=== PATIENT | male | born 1945 | race Caucasian/White ===

== ENCOUNTER 2019-07-31 07:52 | Observation (INO) | payer OTHER ==
[~2019-07-31] VITALS: Ht 172.7 cm; Wt 104.8 kg
[2019-07-31] VITALS (11 sets, daily range): BP systolic 120–153; BP diastolic 50–83
[~2019-07-31 07:52] MED LIST: ALTACE5 M1 PO; AMBIEN 10 MG TA10 MG PO; ASA5UEC PO; COLACE100 MG PO; CRESTOR40 MG PO; DIPHENOXYLATE/A1 TA1 PO; FENOFIBRATE160 MG PO; FLAGYL500 MG PO; FLOMAX PO; GLUCOPHAGE XR750 MG PO; MOBIC7.5 MG PO; PRILOSEC 20 MG20 MG PO; PYRIDIUM200 MG PO; VENLAFAXINE HCL75 M2 PO; ZANAFLEX2 M1 PO
[2019-07-31 08:52] LABS: HEMATOCRIT 34.3 % (42.0-52.0); HEMOGLOBIN 11.6 gm/dL (14.0-18.0); MCH 31.7 pg (26.0-34.0); MCHC 33.7 g/dL (28.0-37.0); MCV 93.8 fL (80.0-100.0); RBC 3.65 mil/uL (4.50-6.00); RDW 20.8 % (10.5-14.5); WBC 6.4 thou/uL (4.0-11.0)
[2019-07-31 09:05] LABS: CALCIUM 9.5 mg/dL (8.5-10.1); CREATININE 1.4 mg/dL (0.7-1.3); POTASSIUM 4.3 mmol/L (3.5-5.1)
[2019-07-31] MEDS ORDERED: FOSAMAX 70 MG T70 MG PO (09:06)
[2019-07-31] MEDS ORDERED: FOLIC ACID0.4 MG PO (09:07)
[2019-07-31] MEDS ORDERED: NORVASC5 M1 PO (09:07)
[2019-07-31] MEDS ORDERED: NEURONTIN 400M400 M2 PO (09:08)
[2019-07-31] MEDS ORDERED: LANTUS SUBQ (09:09)
[2019-07-31] MEDS ORDERED: AVAPRO300 MG PO (09:11)
[2019-07-31] MEDS ORDERED: METHOTREXATE 22.5 M1 PO (09:12)
[2019-07-31] MEDS ORDERED: NITROSTAT0.4 M1 SUBLING (09:13)
[2019-07-31] MEDS ORDERED: PROTONIX40 M4 PO (09:14)
[2019-07-31] MEDS ORDERED: TORSEMIDE10 MG PO (09:15)
[2019-07-31] MEDS ORDERED: RAYOS5 MG PO (09:15)
[2019-07-31] MEDS ORDERED: ROSUVASTATIN CA20 MG PO (09:15)
[2019-07-31] MEDS ORDERED: ZETIA10 MG PO (09:16)
[2019-07-31] MEDS ORDERED: TRAZODONE HCL50 MG PO (09:16)
[2019-07-31] MEDS ORDERED: BYSTOLIC 5 MG5 MG PO (09:17)
[2019-07-31] MEDS ORDERED: ASA5UEC PO (09:18)
[2019-07-31] MEDS ORDERED: EFFIENT10 MG PO (14:31)
--- NOTE | 2019-07-31 16:12 | EKG ---
[address] [address] ELECTROCARDIOGRAM REPORT Name: INDIANA FLORES Room #: 219-P [facility] M.R.#: [id number] Admission: 07/31/19 Attend Phys: Dyllan Talavera MD, Discharge: Date of : 43 Report #: [id number] THIS REPORT FOR: //name// [facility] Test Date: 2019-07-31 Test Time: 08:48:50 Pat Name: INDIANA FLORES Department: Room: 219 Gender: M [employer] Programmer: Monica VALLADARES : 1945 Requested By: Dyllan Talavera Order Number: [id number] MD: Sandeep Jon Measurements Intervals [place] Rate: 71 P: 15 AR: 159 QRS: 54 QRSD: 100 T: 42 QT: 401 QTc: 436 Interpretive Statements Sinus rhythm Normal tracing Compared to ECG 03/02/2010 12:21:20 No significant changes Electronically Signed On 07-31-2019 16:12:39 SPINE SURGEON by Sandeep Jon [email or web address] <ELECTRONICALLY SIGNED> By: Sandeep Jon MD, [facility] 07/31/19 1612 7 7 Sandeep Jon MD, [facility] /EPI
--- NOTE | 2019-07-31 16:55 | NUR ---
PT ARRIVED FROM [facility] APPROX 1135. R GROIN SITE CDI. NO CLOSURE. BEDREST FOR 6 HRS. ADMIT ORDERS AND INSTRUCTIONS COMPLETE. MEDS GIVEN PER NOV. C/O PAIN IN LOWER BACK TREATED WITH PO MEDS. BATHROOM PRIVLEDGES AFTER BEDREST. PLAN FOR DISCHARGE TOMORROW. WILL CONTINUE TO MONITOR AND FOLLOW POC.
--- NOTE | 2019-07-31 18:34 | CATHLAB ---
[facility] [address] [place] [address] INVASIVE PROCEDURE REPORT Name: INDIANA FLORES Room #: 219-P [facility] IN ..#: [id number] Admission: 07/31/19 Attend Phys: Dyllan Talavera, Discharge: Date of : 43 Report #: [id number] THIS REPORT FOR: //name// APPROVED REPORT Study performed: 07/31/2019 09:50:07 Patient Details Patient Status: Out-Patient Room #: The patient is a 73 year-old male Event Personnel Dyllan Talavera Dba Developer, Shira Bundy RN, Belkis Cortes Jackson, Sherra RTAliya Monitor, Kisha Cartagena Monitor Procedures Performed Art Access - R femoral artery* 53000 Initial Mod Sed Same Phys/QHP Gr5y 496431 05229 Mod Sed Same Phys/QHP Ea 076696 Left Heart Cath Coronaries, Bypass Grafts 8193979 LHCCORCABG Renal Bilateral Peripheral Angiography 9776042 CVRENALBIL CARLY Place w/wo Plasty Single JENNIFER 091508 Hemostasis with Manual pressure Indication Chest pain Procedure Narrative The patient was brought electively to the Cardiac Catheterization Laboratory and was prepped and draped in a sterile manner. The Right Groin^ was infiltrated with 1% Lidocaine subcutaneous anesthesia. A PINNACLE 6FR Sheath #[id number] sheath was inserted into the RFA^. Coronary angiography was performed using coronary diagnostic catheters. The right coronary system was accessed and visualized with a JR 4 catheter. The left coronary system was accessed and visualized with a JL 4 catheter. The left ventricle was accessed and visualized with a Pigtail catheter. Left ventriculogram was performed in ROSALES projection. Hemostasis was obtained with manual pressure following sheath removal without any complications. The patient tolerated the procedure well and there were no complications associated with the procedure. There was no hematoma. Intraoperative Conscious Sedation Sedation start time: 09:43 Case end Time: 11:20 Fentanyl 275 mcg Versed 5.5 mg [facility] [place] [address] INVASIVE PROCEDURE REPORT Name: INDIANA FLORES Room #: 219-P [facility] IN [facility].#: [id number] Admission: 07/31/19 Attend Phys: Dyllan Talavera, Discharge: Date of : 43 Report #: [id number] Fluoro Time: 22.10 minutes Dose: DAP 25493.00 cGycm2 5014 mGy Contrast Type and Amount: Omnipaque 30 ml IVUS Findings Sprinter OTW 2.5 x 15 #[id number] Hemodynamics The aortic pressure is 178/75 mmHg with a mean of 94 mmHg. The left ventricular pressure is 179/72 mmHg with a mean of mmHg. The left ventricular end diastolic pressure is 84 mmHg. PCI Technique Lesion Percutaneous coronary intervention was performed on the first right posterior lateral segment. A VISTA 6FR JR 4 #[id number] Guide Catheter was used to engage the ostium. A Luge Wire .014 x 182CM #[id number] Interventional Guidewire was used to cross the lesion. BALLOON DILATION A Balloon catheter Sprinter OTW 2.25 x 12 #[id number] was inserted and inflated up to 16.00atm for 34seconds. Additional Inflation: 8.00atm for 17seconds. STENT DEPLOYMENT A drug-eluting stent RESOLUTE BURAK OTW 2.25 X 12 #[id number] was inserted and inflated up to 18.00atm for 35seconds. POST STENT DEPLOYMENT BALLOON DILATION A Balloon catheter TREK NC OTW 2.5 X 12 #[id number] was inserted and inflated up to 16atm for 28seconds. Additional Inflation: 16atm for 22seconds. Additional Inflation: 16atm for 25seconds. BALLOON DILATION A Balloon catheter Sprinter OTW 2.5 x 15 #[id number] was inserted and inflated up to 14atm for 39seconds. Additional Inflation: 12atm for 21seconds. POST STENT DEPLOYMENT BALLOON DILATION A Balloon catheter TREK NC RX 2.5 X 15 #[id number] was inserted and inflated up to 20atm for 36seconds. Additional Inflation: 20atm for 28seconds. Additional Inflation: 22atm for 16seconds. Conclusion #1 successful PTCA stent of the proximal high-grade posterior lateral stenosis of 95% with calcification yielding less than 10% residual [facility] [address] [place] [address] INVASIVE PROCEDURE REPORT Name: INDIANA FLORES Room #: 219-P [facility] IN M.R.#: [id number] Admission: 07/31/19 Attend Phys: Dyllan Talavera, Discharge: Date of : 43 Report #: [id number] with THELMA grade 3 flow #2 PTCA of the distal RCA moderately diseased to deliver the posterior lateral stent as noted above. I did resolve the distal right did not place a stent in the distal segment. #3 LAD is occluded / nikolai circumflex occluded #4 RITCHIE graft is intact to LAD diagonal system moderately diseased and calcified the LAD stops short of the apex. #5 the large dominant right coronary stated above is moderate disease throughout the entire midsection of 50-60% that is proximal to the intervention noted above. #6 what appears to be a l radial graft to a small OM system is patent #7 normal left jugular size ejection fraction lower limits of normal 50-55% subtle inferior wall leg Regulations plan continue aggressive risk factor modification. Dual antiplatelet therapy to continue. Patient transfer to CCU in stable condition resolution of chest pain and EKG changes. This distal right PDA branch were a high-grade calcified. Multiple balloons which actually perforated balloon not perforated vessel. Due to calcification final result was certainly acceptable. Transfer to CCU in stable condition. <ELECTRONICALLY SIGNED> By: Dyllan Talavera MD, FACC 07/31/191833 33 33 Dyllan Tlaavera MD, FACC /INF
[2019-08-01 00:49] VITALS: BP 130/82
[2019-08-01 04:24] LABS: HEMOGLOBIN 10.4 gm/dL (14.0-18.0); MCH 32.6 pg (26.0-34.0); MCHC 34.7 g/dL (28.0-37.0); MCV 94.2 fL (80.0-100.0); RBC 3.18 mil/uL (4.50-6.00); RDW 20.7 % (10.5-14.5); WBC 4.6 thou/uL (4.0-11.0)
--- NOTE | 2019-08-01 04:42 | NUR ---
ASSESSMENTS CHARTED. MEDS GIVEN CHARTED. PATIENT HAD BEEN TO HEALTH SERVICES ADMINISTRATOR DURING DAY. RECEIVED STENT TO JENNIFER. PATIENT REQUESTED TRAZADONE FOR NIGHT TIME HE TAKES AT HOME. SPOKE WITH DR. SOTO AND RECEIVED ORDER. PATIENT HAD SEVERAL NOSE BLEEDS DUE TO DRY AIR. INITIALLY THOUGHT OF HUMIDITY THROUGH NC, BUT ORDERED SALINE NASAL SPRAY TO HELP WITH CONGESTION AND DRYNESS. GROIN SITE IS DRY AND SOFT. PLAN IS FOR A MORNING EKG THEN POSSIBLY HOME.
[2019-08-01 04:49] LABS: ALBUMIN 2.9 g/dL (3.4-5.0); CALCIUM 9.2 mg/dL (8.5-10.1); CREATININE 1.2 mg/dL (0.7-1.3); POTASSIUM 4.1 mmol/L (3.5-5.1); TOTAL BILIRUBIN 0.8 mg/dL (<0.1-1.0); TOTAL PROTEIN 5.6 g/dL (6.4-8.2)
[2019-08-01 04:54] LABS: TROPONIN-I 0.93 ng/mL (<0.06)
[2019-08-01 04:55] VITALS: BP 147/60
[2019-08-01 07:14] VITALS: BP 155/64
[2019-08-01 11:07] VITALS: BP 131/63
[2019-08-01 14:53] VITALS: BP 131/63
--- NOTE | 2019-08-01 15:36 | NUR ---
ASSUME CARE OF PT AT SHIFT CHANGE. ASSESSMENTS CHARTED. MEDS GIVEN PER NOV. A&OX4. VSS. NO C/O SOA OR PAIN. GROIN SITE CDI. PT WAITING TO DISCHARGE DURING THE DAY. DC INSTRUCTIONS AND ORDERS COMPLETE. IV AND TELE DC'D. PT LEFT WITH ALL BELONGING EXCEPT A BLUE SWEATER VEST WHICH WAS TAKEN TO SECURITY. PT CELL PHONE CALLED AND MESSAGE LEFT REGARDING LEFT SWEATER.
[2019-08-01 15:38] VITALS: BP 131/63
--- NOTE | 2019-08-02 13:14 | EKG ---
[address] [address] ELECTROCARDIOGRAM REPORT Name: INDIANA FLORES Jackie Room #: 219-[facility]..#: [id number] Admission: 07/31/19 Attend Phys: Dyllan Talavera MD, Discharge: 08/01/19 Date of : 43 Report #: [id number] THIS REPORT FOR: //name// [facility] Test Date: 2019-08-01 Test Time: 07:30:26 Pat Name: INDIANA FLORES Department: Room: 219 P Gender: M Surgical Training Specialist: Aliya CHISHOLM : 1945 Requested By: Zenobia Shaffer Order Number: [id number] MD: Sandeep Jon Measurements Intervals [place] Rate: 83 P: 13 SD: 158 QRS: 57 QRSD: 110 T: 38 QT: 383 QTc: 450 Interpretive Statements Sinus rhythm Normal tracing Compared to ECG 07/31/2019 08:48:50 No significant changes Electronically Signed On 08-02-2019 13:14:27 HOME SCHOOL COORDINATOR by Sandeep Jon [email or web address] <ELECTRONICALLY SIGNED> By: Sandeep Jon MD, [facility] 08/02/19 1314 9 Sandeep Jon MD, [facility] /EPI
== END 2019-08-01 15:25 | disposition home or self-care (01) ==
LOC: CATH 07:52 → 2N 12:07
PROVIDERS: Nurse Practitioner Adult Health; ADMIT Internal Medicine Cardiovascular Disease
DX: I25.10 Atherosclerotic heart disease of native coronary artery without angina pectoris (principal); I10 Essential (primary) hypertension; E78.00 Pure hypercholesterolemia, unspecified; E11.9 Type 2 diabetes mellitus without complications; I65.29 Occlusion and stenosis of unspecified carotid artery; Z86.718 Personal history of other venous thrombosis and embolism; Z79.82 Long term (current) use of aspirin; Z79.899 Other long term (current) drug therapy

== ENCOUNTER → 2019-12-29 | Outpatient (CLI) | payer OTHER ==
[~2019-12-29] MED LIST changes: +ADULT ASPIRIN R81 MG PO; +AVAPRO300 MG PO; +BYSTOLIC 5 MG5 MG PO; +EFFIENT10 MG PO; +FOLIC ACID0.4 MG PO; +FOSAMAX 70 MG T70 MG PO; +LANTUS SUBQ; +METHOTREXATE 22.5 M1 PO; +NEURONTIN 400M400 M2 PO; +NITROSTAT0.4 M1 SUBLING; +NORVASC5 M1 PO; +PLAVIX 75 MG TA75 MG PO; +PROTONIX40 M4 PO; +RAYOS5 MG PO; +ROSUVASTATIN CA20 MG PO; +TOPROL XL50 MG PO; +TORSEMIDE10 MG PO; +TRAZODONE HCL50 MG PO; +ZETIA10 MG PO
== END ==
LOC: SJCVCIMAG 12:47
DX: I87.2 Venous insufficiency (chronic) (peripheral) (principal); I25.10 Atherosclerotic heart disease of native coronary artery without angina pectoris; I10 Essential (primary) hypertension; E11.69 Type 2 diabetes mellitus with other specified complication; E78.5 Hyperlipidemia, unspecified; I65.29 Occlusion and stenosis of unspecified carotid artery; Z86.718 Personal history of other venous thrombosis and embolism

== ENCOUNTER → 2019-12-31 | Outpatient (CLI) | payer OTHER ==
[~2019-12-31] VITALS: Ht 172.7 cm; Wt 95.3 kg
[2019-12-31 12:46] LABS: HEMATOCRIT 32.6 % (42.0-52.0); HEMOGLOBIN 11.4 gm/dL (14.0-18.0); MCH 33.1 pg (26.0-34.0); MCV 94.5 fL (80.0-100.0); RBC 3.45 mil/uL (4.50-6.00); RDW 16.1 % (10.5-14.5); WBC 6.2 thou/uL (4.0-11.0)
[2019-12-31 12:54] VITALS: BP 159/68
[2019-12-31 12:58] LABS: CALCIUM 8.9 mg/dL (8.5-10.1); CREATININE 1.4 mg/dL (0.7-1.3); POTASSIUM 4.6 mmol/L (3.5-5.1)
--- NOTE | 2019-12-31 16:41 | NUR ---
PROCEDURE CANCELLED TODAY DUE TO BACK OF OTHER CASES. PT AGREES TO COME BACK SATURDAY FOR RESCEDULE. IV DC'D AND PT GIVEN WC RIDE TO DOOR. WILL RESCHEDULE FOR 1330 ON 01/03
== END | disposition home or self-care (01) ==
LOC: CATH 11:53
PROVIDERS: Nuclear Medicine Nuclear Cardiology
DX: I25.10 Atherosclerotic heart disease of native coronary artery without angina pectoris (principal); Z53.8 Procedure and treatment not carried out for other reasons; I11.0 Hypertensive heart disease with heart failure; I50.9 Heart failure, unspecified; E11.9 Type 2 diabetes mellitus without complications; J44.9 Chronic obstructive pulmonary disease, unspecified; I73.9 Peripheral vascular disease, unspecified; K21.9 Gastro-esophageal reflux disease without esophagitis; E78.5 Hyperlipidemia, unspecified; Z95.1 Presence of aortocoronary bypass graft; Z98.890 Other specified postprocedural states; Z79.899 Other long term (current) drug therapy; Z87.891 Personal history of nicotine dependence

== ENCOUNTER → 2020-01-04 | Outpatient (CLI) | payer OTHER ==
[~2020-01-04] VITALS: Ht 172.7 cm; Wt 98.0 kg
[2020-01-04 13:13] VITALS: BP 148/69
== END | disposition home or self-care (01) ==
LOC: CATH 10:33
DX: I87.1 Compression of vein (principal); I87.323 Chronic venous hypertension (idiopathic) with inflammation of bilateral lower extremity; R22.43 Localized swelling, mass and lump, lower limb, bilateral; I11.0 Hypertensive heart disease with heart failure; I50.9 Heart failure, unspecified; J44.9 Chronic obstructive pulmonary disease, unspecified; E11.9 Type 2 diabetes mellitus without complications; E78.00 Pure hypercholesterolemia, unspecified; K21.9 Gastro-esophageal reflux disease without esophagitis; Z95.1 Presence of aortocoronary bypass graft; Z98.890 Other specified postprocedural states; Z79.899 Other long term (current) drug therapy; Z86.718 Personal history of other venous thrombosis and embolism; Z79.01 Long term (current) use of anticoagulants; Z96.651 Presence of right artificial knee joint; Z79.4 Long term (current) use of insulin; Z87.891 Personal history of nicotine dependence

== ENCOUNTER → 2020-01-28 | Outpatient (CLI) | payer OTHER ==
[~2020-01-28] VITALS: Ht 172.7 cm; Wt 98.9 kg
[2020-01-28 11:57] VITALS: BP 139/69
== END | disposition home or self-care (01) ==
LOC: CATH 01-07 09:24
DX: I87.323 Chronic venous hypertension (idiopathic) with inflammation of bilateral lower extremity (principal); M79.604 Pain in right leg; M79.605 Pain in left leg; R22.43 Localized swelling, mass and lump, lower limb, bilateral; I11.0 Hypertensive heart disease with heart failure; I50.9 Heart failure, unspecified; E11.9 Type 2 diabetes mellitus without complications; J44.9 Chronic obstructive pulmonary disease, unspecified; E78.00 Pure hypercholesterolemia, unspecified; K21.9 Gastro-esophageal reflux disease without esophagitis; I73.9 Peripheral vascular disease, unspecified; Z98.890 Other specified postprocedural states; Z79.899 Other long term (current) drug therapy; Z87.891 Personal history of nicotine dependence; Z95.1 Presence of aortocoronary bypass graft; Z82.49 Family history of ischemic heart disease and other diseases of the circulatory system; Z96.651 Presence of right artificial knee joint; Z79.4 Long term (current) use of insulin; Z88.0 Allergy status to penicillin; Z88.8 Allergy status to other drugs, medicaments and biological substances; Z79.82 Long term (current) use of aspirin

== ENCOUNTER → 2020-03-08 | Outpatient (CLI) | payer OTHER | LOC: SJCVCIMAG 09:17 | PROVIDERS: ATTEND Internal Medicine Cardiovascular Disease | DX: R00.0 Tachycardia, unspecified (principal); I25.810 Atherosclerosis of coronary artery bypass graft(s) without angina pectoris; R53.83 Other fatigue; J44.9 Chronic obstructive pulmonary disease, unspecified; E11.9 Type 2 diabetes mellitus without complications; Z87.891 Personal history of nicotine dependence; Z79.82 Long term (current) use of aspirin; Z79.899 Other long term (current) drug therapy; Z95.1 Presence of aortocoronary bypass graft ==

== ENCOUNTER 2020-07-13 09:06 | Inpatient (IN) | payer OTHER ==
[~2020-07-13] VITALS: Ht 170.2 cm; Wt 102.1 kg
[2020-07-13 09:10] VITALS: BP 148/78
[2020-07-13 09:35] LABS: ABSOLUTE NEUTROPHILS 3.7 thou/uL (1.4-8.2); EOSINOPHILS 2.2 % (0.0-3.0); HEMATOCRIT 32.8 % (42.0-52.0); HEMOGLOBIN 11.1 gm/dL (14.0-18.0); LYMPHOCYTES 19.7 % (24.0-44.0); MCH 31.6 pg (26.0-34.0); MCHC 33.7 g/dL (28.0-37.0); MCV 93.8 fL (80.0-100.0); MONOCYTES 10.5 % (1.0-8.0); PLATELET COUNT 182 thou/uL (150-400); POLYS 66.6 % (36.0-66.0); RDW 16.1 % (10.5-14.5); WBC 5.6 thou/uL (4.0-11.0)
[2020-07-13 10:25] LABS: CALCIUM 9.5 mg/dL (8.5-10.1); CREATININE 1.2 mg/dL (0.7-1.3)
[2020-07-13 10:33] LABS: TROPONIN-I 0.12 ng/mL (<0.06)
[2020-07-13] MEDS ORDERED: FOSAMAX 70 MG T70 MG PO (10:43)
[2020-07-13 11:50] VITALS: BP 131/72
--- NOTE | 2020-07-13 12:21 | NUR ---
ATTEMPTED TO CALL REPORT AT THIS TIME. NURSE UNAVAILABLE AND WILL CALL BACK
--- NOTE | 2020-07-13 12:50 | EKG ---
[facility] [place] [address] ELECTROCARDIOGRAM REPORT Name: INDIANA FLORES Room #: 170-3 ADM IN M.R.#: [id number] Admission: 07/13/20 Attend Phys: Dyllan Talavera MD, Discharge: Date of : 43 Report #: [id number] THIS REPORT FOR: cc: FAM - Family physician unknown FAM - Family physician unknown Sandeep Jon MD [facility] THIS REPORT FOR: //name// [facility] ED Test Date: 2020-07-13 Test Time: 09:17:00 Pat Name: INDIANA FLORES Department: Room: [facility] Gender: M Assignment Editor: NO : 1945 Requested By: Aniceto Moreau Order Number: [id number] MD: Sandeep Jon Measurements Intervals [place] Rate: 86 P: 9 WI: 167 QRS: 59 QRSD: 123 T: 8 QT: 390 QTc: 467 Interpretive Statements Sinus rhythm Nonspecific intraventricular conduction delay Compared to ECG 03/24/2020 07:08:21 No significant changes Electronically Signed On 07-13-2020 12:50:54 CDT by Sandeep Jno [email or web address] <ELECTRONICALLY SIGNED> By: Sandeep Jon MD, FACC 07/13/20 1250 0917 6 Sandeep Jon MD, [facility] /EPI
[2020-07-13 13:02] VITALS: BP 143/77
[2020-07-13 13:25] VITALS: BP 151/77
--- NOTE | 2020-07-13 13:40 | NUR ---
Pt admitted to room 213 from the emergency department. Pt alert and oriented. Pt denies any chest pain at this time. NSR. Pt has saline lock left hand. Voided in bathroom upon arrival to his room. See admission summary/assesment.
[2020-07-13 13:51] VITALS: BP 151/77
--- NOTE | 2020-07-13 15:35 | 2DMMODE ---
[facility] [place] [address] 2 D/M-MODE ECHOCARDIOGRAM Name: INDIANA FLORES Room #: 213-P ADM IN M.R.#: [id number] Admission: 07/13/20 Attend Phys: Dyllan Talavera MD, Discharge: Date of : 43 Report #: [id number] THIS REPORT FOR: cc: FAM - Family physician unknown FAM - Family physician unknown Dharmesh Burk MD ~ APPROVED REPORT Study performed: 07/13/2020 14:02:58 EXAM: Comprehensive 2D, Doppler, and color-flow Echocardiogram Patient Location: Bedside Room #: 213 Status: routine BSA: 2.02 HR: 83 bpm Rhythm: NSR Other Information Study Quality: Adequate Indications CAD Chest Pain Hypertension/HDD 2D Dimensions RVDd: 41.20 mm IVSd: 10.66 (7-11mm) LVOT Diam: 22.73 (18-24mm) LVDd: 47.39 mm PWd: 11.41 (7-11mm) Ascending Ao: 35.47 (22-36mm) LVDs: 32.29 (25-40mm) Aortic Root: 37.82 mm IVC: 17.00 mm Volumes Left Atrial Volume (Systole) Single Plane 4CH: 41.33 mL Single Plane 2CH: 60.74 mL LA ESV Index: 27.00 mL/m2 Aortic Valve AoV Peak Shabbir.: 1.52 m/s AO Peak Gr.: 9.21 mmHg LVOT Max P.31 mmHg LVOT Max V: 0.91 m/s [facility] [address] [place] [address] 2 D/M-MODE ECHOCARDIOGRAM Name: INDIANA FLORES Room #: 213-P [facility] IN ..#: [id number] Admission: 07/13/20 Attend Phys: Dyllan Talavera, Discharge: Date of : 44 Report #: [id number] CHANTEL Vmax: 2.43 cm2 Mitral Valve E/A Ratio: 1.0 MV Decel. Time: 160.85 ms MV E Max Shabbir.: 0.62 m/s MV A Shabbir.: 0.61 m/s MV PHT: 46.65 ms IVRT: 103.81 ms Pulmonary Valve PV Peak Shabbir.: 0.76 m/s PV Peak Gr.: 2.32 mmHg Pulmonary Vein P Vein S: 0.53 m/s P Vein A: 0.19 m/s P Vein D: 0.43 m/s P Vein A Dur.: 110.7 msec P Vein S/D Ratio: 1.23 Tricuspid Valve TR Peak Shabbir.: 2.74 m/s TR Peak Gr.: 29.97 mmHg PA Pressure: 35.00 mmHg Left Ventricle The left ventricle is normal size. There is normal LV segmental wall motion. There is normal left ventricular wall thickness. The left ventricular systolic function is normal. The left ventricular ejection fraction is within the normal range. LVEF is 55-60%. The left ventricular diastolic function is normal. Right Ventricle The right ventricle is normal size. The right ventricular systolic function is normal. Atria The left atrium size is normal. The right atrium size is normal. Aortic Valve The aortic valve is normal in structure. No aortic regurgitation is present. There is no aortic valvular stenosis. Mitral Valve The mitral valve is normal in structure. Trace to mild mitral regurgitation. No evidence of mitral valve stenosis. [facility] [place] [address] 2 D/M-MODE ECHOCARDIOGRAM Name: INDIANA FLORES Room #: 213-P [facility] IN .R.#: [id number] Admission: 07/13/20 Attend Phys: Dyllan Talavera, Discharge: Date of : 43 Report #: [id number] Tricuspid Valve The tricuspid valve is normal in structure. There is trace tricuspid regurgitation. Estimated PAP 35 mmHg. There is mild pulmonary hypertension. Pulmonic Valve The pulmonary valve is normal in structure. There is no pulmonic valvular regurgitation. Great Vessels The aortic root is normal in size. IVC is normal in size and collapses >50% with inspiration. Pericardium There is no pericardial effusion. <Conclusion> The left ventricle is normal size. LVEF is 55-60%. The aortic valve is normal in structure. The mitral valve is normal in structure. Trace to mild mitral regurgitation. The tricuspid valve is normal in structure. There is trace tricuspid regurgitation. Estimated PAP 35 mmHg. There is mild pulmonary hypertension. The pulmonary valve is normal in structure. There is no pericardial effusion. <ELECTRONICALLY SIGNED> By: Dharmesh Burk MD 07/13/20 1534 1534 1534 Dharmesh Burk MD /INF
--- NOTE | 2020-07-13 19:30 | NUR ---
No episodes of chest pain. Pt ate meals without difficulty. came to visit. Instructed NPO after midnight for heart cath tomorrow. Report given to RN assuming care. marketing administrator still needs notification of admit per pt request...passed on to RN assuming care.
[2020-07-13 21:15] VITALS: BP 127/59
[2020-07-14] VITALS (12 sets, daily range): BP systolic 16–142; BP diastolic 50–80
--- NOTE | 2020-07-14 05:26 | NUR ---
ASSUMED CARE OF PATIENT AT 1900; AOX4/ STEADY ON AMBULATION; SR ON THE MONITOR AND NO C/O OF CHEST PAIN; NPO AFTER MIDNIGHT/ COVID NEGATIVE P/T CATH PROCEDURE; WILL CONTINUE TO MONITOR
[2020-07-14 05:37] LABS: HEMATOCRIT 33.3 % (42.0-52.0); HEMOGLOBIN 11.1 gm/dL (14.0-18.0); MCH 31.3 pg (26.0-34.0); MCHC 33.3 g/dL (28.0-37.0); MCV 94.1 fL (80.0-100.0); RBC 3.53 mil/uL (4.50-6.00); RDW 16.3 % (10.5-14.5); WBC 5.6 thou/uL (4.0-11.0)
[2020-07-14 06:10] LABS: ANION GAP 8 mmol/L (7-16); BUN 20 mg/dL (7-18); CALCIUM 9.2 mg/dL (8.5-10.1); CHLORIDE 105 mmol/L (98-107); CO2 26 mmol/L (21-32); CREATININE 1.1 mg/dL (0.7-1.3); GLUCOSE 179 mg/dL (74-106); POTASSIUM 4.2 mmol/L (3.5-5.1); SODIUM 139 mmol/L (136-145); TROPONIN-I <0.06 ng/mL (<0.06)
--- NOTE | 2020-07-14 08:46 | EKG ---
[facility] [place] [address] ELECTROCARDIOGRAM REPORT Name: INDIANA FLORES Room #: 213-P ADM IN M.R.#: [id number] Admission: 07/13/20 Attend Phys: Dyllan Talavera MD, Discharge: Date of : 43 Report #: [id number] THIS REPORT FOR: cc: FAM - Family physician unknown FAM - Family physician unknown Sandeep oJn MD [facility] ~ THIS REPORT FOR: //name// [facility] Test Date: 2020-07-14 Test Time: 07:11:09 Pat Name: INDIANA FLORES Department: Room: 213 P Gender: M Optical Assistant: MARYSOL : 1945 Requested By: Marina Ayala Order Number: [id number] MD: Sandeep Jon Measurements Intervals [place] Rate: 79 P: -17 AR: 166 QRS: 59 QRSD: 121 T: 19 QT: 408 QTc: 468 Interpretive Statements Sinus rhythm Nonspecific intraventricular conduction delay Compared to ECG 07/13/2020 09:17:00 No significant changes Electronically Signed On 07-14-2020 8:46:33 CDT by Sandeep Jon [email or web address] <ELECTRONICALLY SIGNED> By: Sandeep Jon MD, FACC 07/14/20 0846 0 0 Sandeep Jon MD, [facility] /EPI
--- NOTE | 2020-07-14 09:15 | NUR ---
PT. TAKEN TO PROCEDURE AT THIS TIME, OFF UNIT. SIGNED CONSENT ON CHART. DENIES ANY CHEST PAIN AT THIS TIME, NO SOB. IV FLUSHED AND NO SIGN'S OF INFILTRATION AT SITE.
--- NOTE | 2020-07-14 11:39 | NUR ---
PT BROUGHT TO RM 8 AFTER CARDIAC CATH FOR GROIN MONITORING. RT GROIN SOFT TO PALPATION, DRESSING C/D/I. NO COMPLAINTS OF PAIN OR DISCOMFORT. CALL LIGHT IN PT HAND. ON MONITOR, VSS.
--- NOTE | 2020-07-14 14:16 | NUR ---
PT ARRIVED BACK ON UNIT AT THIS TIME. RIGHT GROIN SITE IS C,D,I NO OOZING FROM SITE, NO HEMATOMA PALPATED OR VISUAL OBSERVED. PEDAL PULSES ARE 2+ ON BOTH LOWER EXTREMITIES. LEGS ARE WARM TO TOUCH NO SIGN'S OF MOTTLING ON LOWER EXTREMETIES EITHER. PT. DENIES ANY CHEST PAIN, DENIES ANY PAIN AT THIS TIME WELL. IVF HOOKED UP AND NEW BAG STARTED ORDERED. NORMAL SINUS RYTHYM ON THE MONITOR, NO ECTOPY. IS BEDSIDE AND THEY ARE TALKING. DISCHARGE WILL BE TOMMORROW. OFF BEDREST TODAY AT 14:15 WILL. MEDICATIONS HELD FROM AM GIVEN AT THIS TIME.
--- NOTE | 2020-07-14 18:56 | NUR ---
18:00.PT INBED, RIGHT GROIN SITE IS C,D,I NO OOZING ON DRESSING, NO HEMATOMA NOTED AT INSERTION SITE, SOFT TO TOUCH. PEDAL PULSES ARE 2+ LOWER EXTREMETIES BILATERALLY AND NO EDEMA ON EITHER LEG/FEET. DENIES CHEST PAIN. PLACED HIM ON 2L NC FOR RELAXATION AND TO CATCH HIS BREATH HE "GETS WINDED EVERY ONCE AND AWHILE WHEN MOVES AROUND ALOT". IV SITE WAS CHANGED OUT HIS HAND IV CLOTTED OFF-REMOVED AND NEW SITE ON RIGHT ARE-20G.
[2020-07-15 02:30] VITALS: BP 124/61
--- NOTE | 2020-07-15 02:58 | NUR ---
PT IS ALERT AND ORIENTED X4. LUNGS ARE CLEAR. RGHT GROIN SITE DRESSING IS CLEAN DRY AND INTACT. SMALL BRUSISE NOTED BELOW DRESSING. DENIED CHEST PAIN. PT SLEEPING AND RESTNG. NO COMPLAINTS NOTED. WILL CONTINUE TO ASSESS AN MONIOR PER NURSING.
[2020-07-15 04:15] VITALS: BP 118/54
[2020-07-15 05:42] LABS: HEMATOCRIT 30.8 % (42.0-52.0); HEMOGLOBIN 10.4 gm/dL (14.0-18.0); MCH 31.8 pg (26.0-34.0); MCHC 33.9 g/dL (28.0-37.0); MCV 93.6 fL (80.0-100.0); RBC 3.29 mil/uL (4.50-6.00); RDW 16.3 % (10.5-14.5); WBC 6.4 thou/uL (4.0-11.0)
[2020-07-15 06:07] LABS: ALBUMIN 3.1 g/dL (3.4-5.0); ANION GAP 8 mmol/L (7-16); BUN 19 mg/dL (7-18); CALCIUM 8.9 mg/dL (8.5-10.1); CHLORIDE 106 mmol/L (98-107); CO2 28 mmol/L (21-32); GLUCOSE 156 mg/dL (74-106); POTASSIUM 4.2 mmol/L (3.5-5.1); SGOT 18 U/L (15-37); SGPT 23 U/L (30-65); SODIUM 142 mmol/L (136-145); TROPONIN-I <0.06 ng/mL (<0.06)
[2020-07-15 07:33] VITALS: BP 143/74
--- NOTE | 2020-07-15 07:44 | EKG ---
[facility] [place] [address] ELECTROCARDIOGRAM REPORT Name: INDIANA FLORES Jackie Room #: 213-P ADM IN M.R.#: [id number] Admission: 07/13/20 Attend Phys: Dyllan Talavera MD, Discharge: Date of : 43 Report #: [id number] THIS REPORT FOR: cc: FAM - Family physician unknown FAM - Family physician unknown Parrish Edge MD [facility] ~ THIS REPORT FOR: //name// [facility] Test Date: 2020-07-15 Test Time: 07:36:09 Pat Name: INDIANA FLORES Department: Room: 213 P Gender: M Rn Progressive Care Unit: MARYSOL : 1945 Requested By: Zenobia Shaffer Order Number: [id number] MD: Parrish Edge Measurements Intervals [place] Rate: 75 P: 14 UT: 212 QRS: 59 QRSD: 125 T: 42 QT: 416 QTc: 465 Interpretive Statements Sinus rhythm Nonspecific intraventricular conduction delay Compared to ECG 07/14/2020 07:11:09 No significant changes Electronically Signed On 07-15-2020 7:44:12 CDT by Parrish Edge [email or web address] <ELECTRONICALLY SIGNED> By: Parrish Edge MD, FACC 07/15/2044 5 5 Parrish Edge MD, FAC /EPI
--- NOTE | 2020-07-15 08:12 | NUR ---
PT. AWAKE AND ALERT, TALKING WITH STAFF AND OUR MULTIM[employer] SERVICES MANAGER AT THIS TIME. DENIES ANY CHEST PAIN, NO SOB. UP AMBULATING OT RESTROOM, DENIES ANY FEELINGS OF DIZZINESS. MEDICATIONS ALL TAKEN THIS AM. RIGHT GROIN IS C,D,I AND SMALL, SLIGHT BRUISE AT SITE, NO HEMATOMA.
[2020-07-15 11:14] VITALS: BP 126/73
--- NOTE | 2020-07-15 12:03 | NUR ---
PT. GIVEN ZOFRAN FOR SLIGHT NAUSEA AFTER EATING HIS "BIG BEAKFAST". WIATIN ROSEY HIS RIDE FOR DISCHRAGE AND 'ENJPOYING THE PEACE AND QUIET OF BEING AWAY FROM HOME". GOOD SPIRITS TODAY OVERALL. RIGHT GROIN IS C,D,I WITH SLIGHT BRUISE AT SITE SIZE OF A DIME, SLIGHT DISCOLORTAION-COLD TYPE ARTIST MADE AWARE OF SUCH THIS AM.
[2020-07-15 12:30] VITALS: BP 126/73
--- NOTE | 2020-07-15 16:25 | CATHLAB ---
[facility] [place] [address] INVASIVE PROCEDURE REPORT Name: INDIANA FLORES Room #: 213-P [facility] IN M.R.#: [id number] Admission: 07/13/20 Attend Phys: Dyllan Talavera MD, Discharge: 07/15/20 Date of : 43 Report #: [id number] THIS REPORT FOR: cc: FAM - Family physician unknown FAM - Family physician unknown Dyllan Talavera MD [facility] ~ APPROVED REPORT Study performed: 07/14/2020 09:24:25 Patient Details Patient Status: In-Patient Room #: The patient is a 74 year-old male Event Personnel Dyllan Talavera Type Rolling Machine Operator, Julissa Chavis RTR Monitor, Ruben Chance RTR ScrubJorge Ashley RN manager oracle database Performed Art Access - R femoral artery* Left Heart Cath Coronaries, Bypass Grafts 4212190 LHCCORCABG CARLY Place w/wo Plasty Single RCA 734514 15849 Initial Mod Sed Same Phys/QHP Gr5y 233226 12522 Mod Sed Same Phys/QHP Ea 588142 Hemostasis w/ Mynx Indication Chest pain Procedure Narrative The patient was brought urgently to the Cardiac Catheterization Laboratory and was prepped and draped in a sterile manner. The Right Groin^ was infiltrated with 1% Lidocaine subcutaneous anesthesia. A PINNACLE 6FR Sheath #[id number] sheath was inserted into the RFA^. Coronary angiography was performed using coronary diagnostic catheters. The right coronary system was accessed and visualized with a JR 4 catheter. The left coronary system was accessed and visualized with a JL 4 catheter. The left ventricle was accessed and visualized with a Pigtail catheter. Left ventriculogram was performed in ROSALES projection. Closure device was deployed with a 6 Fr Mynx. The patient tolerated the procedure well and there were no complications associated with the procedure. There was no hematoma. Intraoperative Conscious Sedation Sedation start time: 10:14 Case end Time: [facility] [place] [address] INVASIVE PROCEDURE REPORT Name: INDIANA FLORES Room #: 213-P [facility] IN [facility]#: [id number] Admission: 07/13/20 Attend Phys: Dyllan Talavera, Discharge: 07/15/20 Date of : 43 Report #: [id number] 11:15 Fentanyl 100 mcg Versed 2 mg Fluoro Time: 8.70 minutes Dose: DAP 04393.40 cGycm2 1782 mGy Contrast Type and Amount: Omnipaque 140 ml Hemodynamics The aortic pressure is 163/73 mmHg with a mean of 103 mmHg. The left ventricular pressure is 183/3 mmHg with a mean of mmHg. The left ventricular end diastolic pressure is 20 mmHg. PCI Technique Lesion Percutaneous coronary intervention was performed on the mid right coronary artery. A LAUNCHER 6FR AR1 #[id number] Guide Catheter was used to engage the ostium. A Luge Wire .014 x 182CM #672128 Interventional Guidewire was used to cross the lesion. BALLOON DILATION A Balloon catheter TREK NC OTW 2.5 X 12 #[id number] was inserted and inflated up to 18.00atm for 43seconds. Additional Inflation: 24.00atm for 26seconds. Additional Inflation: 22.00atm for 23seconds. STENT DEPLOYMENT A drug-eluting stent RESOLUTE BURAK OTW 2.75 X 26 #[id number] was inserted and inflated up to 16.00atm for 22seconds. POST STENT DEPLOYMENT BALLOON DILATION A Balloon catheter TREK NC OTW 3.0 X 15 #[id number] was inserted and inflated up to 20.00atm for 26seconds. Additional Inflation: 22.00atm for 24seconds. Additional Inflation: 22.00atm for 17seconds. Conclusion #1. Successful PTCA stent of a high-grade subtotaled mid RCA calcified stenosis. Placement of a 2.75 x 26 resolute stent postdilated to high pressures with a 3.0 noncompliant balloon THELMA grade III flow 50 to 60% in-stent restenosis in the posterior lateral branch we will follow this other prior stents are patent #2 left main moderately diseased subtotal distal giving rise to occluded circumflex and a diagonal branch severely diseased LAD is occluded #3 a RITCHIE to LAD is intact also looks to be filling a diagonal branch diffusely diseased no high-grade occlusive disease relatively small in caliber at the anastomosis. #4 SVG to an OM is intact with diffuse disease and a small caliber [address] [address] INVASIVE PROCEDURE REPORT Name: INDIANA FLORES Room #: 213-P [facility] IN M.R.#: [id number] Admission: 07/13/20 Attend Phys: Dyllan Talavera, Discharge: 07/15/20 Date of : 43 Report #: [id number] OM #5 normal left ventricular size ejection fraction lower limits of normal 50% Regulations and plan: Continue aggressive risk factor modification dual antiplatelet therapy has been initiated. To CCU to follow post coronary stent protocol. <ELECTRONICALLY SIGNED> By: Dyllan Talavera MD, FACC 07/15/20 1625 24 24 Dyllan Talavera MD, FACC /INF
== END 2020-07-15 14:00 | disposition home or self-care (01) | DRG 246 ==
LOC: ER 09:06 → 2N 11:18 → EROBS 11:18 → 2N 13:24
PROVIDERS: Emergency Medicine; Nurse Practitioner; Nurse Practitioner Adult Health; ADMIT Internal Medicine Cardiovascular Disease; ATTEND Internal Medicine Cardiovascular Disease
PROC: 4A023N7 Measurement of Cardiac Sampling and Pressure, Left Heart, Percutaneous Approach (ICD-10-PCS; principal; 2020-07-14)
PROC: B2151ZZ Fluoroscopy of Left Heart using Low Osmolar Contrast (ICD-10-PCS; principal; 2020-07-14)
PROC: B2111ZZ Fluoroscopy of Multiple Coronary Arteries using Low Osmolar Contrast (ICD-10-PCS; principal; 2020-07-14)
PROC: 027034Z Dilation of Coronary Artery, One Artery with Drug-eluting Intraluminal Device, Percutaneous Approach (ICD-10-PCS; principal; 2020-07-14)
DX: I21.4 Non-ST elevation (NSTEMI) myocardial infarction (principal); I50.31 Acute diastolic (congestive) heart failure; I25.110 Atherosclerotic heart disease of native coronary artery with unstable angina pectoris; E11.9 Type 2 diabetes mellitus without complications; Z20.828 Contact with and (suspected) exposure to other viral communicable diseases; Z96.651 Presence of right artificial knee joint; J44.9 Chronic obstructive pulmonary disease, unspecified; E78.00 Pure hypercholesterolemia, unspecified; M06.9 Rheumatoid arthritis, unspecified; I65.29 Occlusion and stenosis of unspecified carotid artery; I50.9 Heart failure, unspecified; I11.0 Hypertensive heart disease with heart failure; N40.0 Benign prostatic hyperplasia without lower urinary tract symptoms; Z95.5 Presence of coronary angioplasty implant and graft; Z95.1 Presence of aortocoronary bypass graft; Z86.718 Personal history of other venous thrombosis and embolism; Z88.1 Allergy status to other antibiotic agents; Z88.0 Allergy status to penicillin; Z88.8 Allergy status to other drugs, medicaments and biological substances
CPT/HCPCS: 10081

== ENCOUNTER → 2020-08-30 | Outpatient (CLI) | payer OTHER | LOC: SJCVC 17:19 | PROVIDERS: ATTEND Internal Medicine Cardiovascular Disease | DX: R94.31 Abnormal electrocardiogram [ECG] [EKG] (principal); I45.10 Unspecified right bundle-branch block; I87.2 Venous insufficiency (chronic) (peripheral); I77.9 Disorder of arteries and arterioles, unspecified; I25.10 Atherosclerotic heart disease of native coronary artery without angina pectoris; J44.9 Chronic obstructive pulmonary disease, unspecified; I82.402 Acute embolism and thrombosis of unspecified deep veins of left lower extremity; E11.22 Type 2 diabetes mellitus with diabetic chronic kidney disease; I13.0 Hypertensive heart and chronic kidney disease with heart failure and stage 1 through stage 4 chronic kidney disease, or unspecified chronic kidney disease; I50.9 Heart failure, unspecified; N18.30 Chronic kidney disease, stage 3 unspecified; E78.00 Pure hypercholesterolemia, unspecified; M79.89 Other specified soft tissue disorders; Z95.1 Presence of aortocoronary bypass graft; Z79.82 Long term (current) use of aspirin; Z79.899 Other long term (current) drug therapy; Z87.891 Personal history of nicotine dependence ==

== ENCOUNTER 2020-12-03 19:06 | Inpatient (IN) | payer OTHER ==
[~2020-12-03] VITALS: Ht 172.7 cm; Wt 93.9 kg
[2020-12-03 19:10] VITALS: BP 163/75
[2020-12-03 19:30] LABS: HEMATOCRIT 35.4 % (42.0-52.0); HEMOGLOBIN 12.1 gm/dL (14.0-18.0); MCH 30.9 pg (26.0-34.0); MCHC 34.2 g/dL (28.0-37.0); MCV 90.2 fL (80.0-100.0); RBC 3.93 mil/uL (4.50-6.00); RDW 14.1 % (10.5-14.5)
[2020-12-03 19:38] LABS: ANION GAP 11 mmol/L (7-16); BUN 23 mg/dL (7-18); CALCIUM 9.4 mg/dL (8.5-10.1); CHLORIDE 101 mmol/L (98-107); CO2 25 mmol/L (21-32); CREATININE 1.6 mg/dL (0.7-1.3); GLUCOSE 328 mg/dL (74-106); POTASSIUM 3.8 mmol/L (3.5-5.1); SODIUM 137 mmol/L (136-145)
[2020-12-03 19:48] LABS: ALBUMIN 3.2 g/dL (3.4-5.0); SGOT 22 U/L (15-37); SGPT 18 U/L (30-65); TOTAL BILIRUBIN 0.6 mg/dL (0.2-1.0); TOTAL PROTEIN 6.9 g/dL (6.4-8.2); TROPONIN-I <0.06 ng/mL (<0.06)
[2020-12-03 20:29] VITALS: BP 134/69
[2020-12-03] MEDS ORDERED: NEURONTIN300 MG PO (20:32)
[2020-12-03] MEDS ORDERED: ALPRAZOLAM 0.0.25 M1 (20:33)
[2020-12-03] MEDS ORDERED: NEURONTIN 300M300 M2 PO (20:33)
[2020-12-03] MEDS ORDERED: FAMOTIDINE 20 M20 MG PO (20:33)
[2020-12-03 20:43] VITALS: BP 134/68
[2020-12-03 20:57] VITALS: BP 156/78
--- NOTE | 2020-12-03 21:00 | NUR ---
PT IS AN ADMIT FOR CHEST PAIN . REPORTS NO CHEST PAIN NOTED NOW THOUGH. ALERT AND ORIENTED X4. LUNGS ARE CLEAR. ABDOMEN IS ROUND AND FIRM. ASSIST X1 TO BATHROOM WITH IV POLE. VOIDS AND SOME LOOSE STOOLS NOTED. MEDS GIVEN ORDERED. INFORMED HIM TO HAVE HIS BRING A LIST OF MEDS HE CANT REMBEMBER WHAT MEDS HE TAKES. FORGETFULL OF HOME MEDS WHEN ASKED. DENIES ANY PAIN. WILL CONTINUE TO ASSESS AND MONTIOR PER NURSING AT THIS TIME.
[2020-12-03 23:42] VITALS: BP 137/63
[2020-12-04 01:57] LABS: HEMATOCRIT 32.9 % (42.0-52.0); HEMOGLOBIN 11.1 gm/dL (14.0-18.0); MCH 30.4 pg (26.0-34.0); MCHC 33.7 g/dL (28.0-37.0); MCV 90.3 fL (80.0-100.0); RBC 3.64 mil/uL (4.50-6.00); RDW 14.1 % (10.5-14.5); WBC 6.5 thou/uL (4.0-11.0)
[2020-12-04 02:09] LABS: CHOLESTEROL 132 mg/dL (<200); HDL CHOLESTEROL 47 mg/dL (>40); LDL CHOLESTEROL 31 mg/dL (<100); TC:HDL 2.8 Ratio (Not establshd); TRIGLYCERIDE 270 mg/dL (<150); VLDL 54 mg/dL (<40)
[2020-12-04 02:10] LABS: SERUM ASSESSMENT Clear
[2020-12-04 04:00] VITALS: BP 152/73
[2020-12-04 05:54] LABS: CALCIUM 9.1 mg/dL (8.5-10.1); CREATININE 1.5 mg/dL (0.7-1.3); POTASSIUM 3.5 mmol/L (3.5-5.1); TOTAL BILIRUBIN 0.6 mg/dL (0.2-1.0); TOTAL PROTEIN 6.3 g/dL (6.4-8.2)
[2020-12-04 07:42] VITALS: BP 133/56
--- NOTE | 2020-12-04 11:32 | NUR ---
DR. CACERES PRESENT TO SEE PT. UPDATED ON PT STATUS INCLUDING ELEVATED TROP.
[2020-12-04 11:36] VITALS: BP 133/67
[2020-12-04 16:53] VITALS: BP 141/67
[2020-12-04 19:51] VITALS: BP 138/67
[2020-12-05] VITALS (12 sets, daily range): BP systolic 131–156; BP diastolic 59–86
--- NOTE | 2020-12-05 03:56 | NUR ---
ASSUME CARE 1900. PT/VITLS STABLE. DENIES ANY PAIN AT THIS TIME. SR ON MONITOR. GOOD TOLERANCE FOR ACTIVITY. ASSESSMENT CHARTED. PROGRESSING WELL WITH POC. ADEQUATE REST/NO DISTRESS NOTED THROUGH THE NIGHT. PLAN IS POSSIBLE CARDIAC CATHERIZATION TODAY. WILL CONTINUE TO MONITOR AND FOLLOW WITH POC
--- NOTE | 2020-12-05 07:23 | EKG ---
[address] [address] ELECTROCARDIOGRAM REPORT Name: MARKINDIANA Mejia Room #: 200-I [facility]#: [id number] Admission: 12/03/20 Attend Phys: Abe Fisher MD Discharge: Date of : 43 Report #: [id number] [facility] Test Date: 2020-12-03 Test Time: 19:08:56 Pat Name: INDIANA FLORES Department: Room: 200 Gender: M Cyber Threat Analyst: GABRIEL : 1945 Requested By: Shaun Darden Order Number: [id number] MD: Parrish Edge Measurements Intervals [place] Rate: 99 P: 21 [place]: 197 QRS: 64 QRSD: 126 T: 34 QT: 385 QTc: 495 Interpretive Statements Sinus rhythm Compared to ECG 07/15/2020 07:36:09 No significant changes Electronically Signed On 12-05-2020 7:23:36 CDT by Parrish Edge [email or web address] <ELECTRONICALLY SIGNED> By: Parrish Edge MD, [facility] 12/05/20 0723 1908 1908 Parrish Edge MD, FACC /EPI
--- NOTE | 2020-12-05 10:43 | 2DMMODE ---
[facility] [place] [address] [address] 2 D/M-MODE ECHOCARDIOGRAM Name: MARKINDIANA Jackie Room #: 200-I [facility] M.R.#: [id number] Admission: 12/03/20 Attend Phys: Abe Fisher MD Discharge: Date of : 43 Report #: [id number] THIS REPORT FOR: cc: GERSON CABRERA MD Physician not on staff Dharmesh Burk MD ~ APPROVED REPORT Study performed: 12/05/2020 09:44:25 EXAM: Comprehensive 2D, Doppler, and color-flow Echocardiogram Patient Location: Bedside Room #: 200 Status: routine BSA: 2.08 HR: 85 bpm BP: 144/61 mmHg Rhythm: NSR Other Information Study Quality: Adequate Indications Chest pain, elevated troponin. Hx: CABG, stent, HTN, HLP, DM, COPD 2D Dimensions RVDd: 30.59 mm IVSd: 14.38 (7-11mm) LVOT Diam: 21.95 (18-24mm) LVDd: 49.40 mm PWd: 9.80 (7-11mm) LVDs: 36.63 (25-40mm) Aortic Root: 41.08 mm Volumes Left Atrial Volume (Systole) Single Plane 4CH: 60.07 mL Single Plane 2CH: 58.97 mL LA ESV Index: 32.00 mL/m2 Aortic Valve AoV Peak Shabbir.: 1.55 m/s AO Peak Gr.: 9.63 mmHg LVOT Max P.88 mmHg LVOT Max V: 0.85 m/s CHANTEL Vmax: 2.07 cm2 [facility] [address] [place] [address] 2 D/M-MODE ECHOCARDIOGRAM Name: INDIANA FLORES Room #: 200-I [facility]#: [id number] Admission: 12/03/20 Attend Phys: Abe Fisher, Discharge: Date of : 43 Report #: [id number] Mitral Valve E/A Ratio: 0.7 MV Decel. Time: 194.11 ms MV E Max Shabbir.: 0.56 m/s MV A Shabbir.: 0.81 m/s MV PHT: 56.29 ms IVRT: 73.82 ms Pulmonary Valve PV Peak Shabbir.: 1.22 m/s PV Peak Gr.: 5.99 mmHg Pulmonary Vein P Vein S: 0.49 m/s P Vein D: 0.42 m/s P Vein S/D Ratio: 1.17 Tricuspid Valve TR Peak Shabbir.: 2.48 m/s RAP Estimate: 5.00 mmHg TR Peak Gr.: 25.00 mmHg PA Pressure: 30.00 mmHg Left Ventricle The left ventricle is normal size. There is normal LV segmental wall motion. Mild basal septal hypertrophy is present. Left ventricular systolic function is normal. LVEF is 55-60%. Mild diastolic dysfunction is present (impaired relaxation pattern). Right Ventricle The right ventricle is normal size. The right ventricular systolic function is normal. Atria The left atrium size is normal. The right atrium size is normal. Aortic Valve The Aortic valve is mildly sclerotic. No aortic regurgitation is present. There is no aortic valvular stenosis. Mitral Valve The mitral valve is normal in structure. Mild mitral regurgitation. Tricuspid Valve The tricuspid valve is normal in structure. Trace tricuspid [facility] [address] [place] [address] 2 D/M-MODE ECHOCARDIOGRAM Name: INDIANA FLORES Room #: 200-I [facility] IN .R.#: [id number] Admission: 12/03/20 Attend Phys: Abe Fisher, Discharge: Date of : 43 Report #: [id number] regurgitation. Estimated PAP is 30mmHg. Pulmonic Valve The pulmonary valve is normal in structure. Trace pulmonic regurgitation. Great Vessels The aortic root is normal in size. IVC is normal in size and collapses >50% with inspiration. Pericardium There is no pericardial effusion. <Conclusion> The left ventricle is normal size. Left ventricular systolic function is normal. The Aortic valve is mildly sclerotic. The mitral valve is normal in structure. Mild mitral regurgitation. The tricuspid valve is normal in structure. Trace tricuspid regurgitation. Estimated PAP is 30mmHg. The pulmonary valve is normal in structure. Trace pulmonic regurgitation. There is no pericardial effusion. <ELECTRONICALLY SIGNED> By: Dharmesh Burk MD 12/05/20 1043 1043 1043 Dharmesh Burk MD /INF
--- NOTE | 2020-12-05 14:42 | CATHLAB ---
[facility] [place] [address] INVASIVE PROCEDURE REPORT Name: INDIANA FLORES Room #: 200-I [facility] M.R.#: [id number] Admission: 12/03/20 Attend Phys: Abe Fisher MD Discharge: Date of : 43 Report #: [id number] THIS REPORT FOR: cc: GERSON CABRERA MD Physician not on staff Giovanni Whitfield MD ~ APPROVED REPORT Study performed: 12/05/2020 11:42:32 Patient Details Patient Status: In-Patient Room #: The patient is a 74 year-old male Event Personnel Giovanni Whitfield Revenue Accounting Manager, Toni Greenwood RN RN, Julissa Chavis RTR Scrub, Everardo Henderson RTR Monitor Procedures Performed Art Access - R femoral artery* Left Heart Cath Coronaries, Bypass Grafts 0574705 LHCCORCABG 51648 Initial Mod Sed Same Phys/QHP Gr5y 254516 91748 Mod Sed Same Phys/QHP Ea 532386 Hemostasis with Manual pressure Indication Non-STEMI , Dyspnea, Chest pain Risk Factors Hypercholesterolemia, Coronary Artery DiseaseHypertension, Diabetes Previous Procedures/Diagnoses Previous CABGPrevious PCI, Previous [place] Procedure Narrative The Right Groin^ was infiltrated with 1% Lidocaine subcutaneous anesthesia. A PINNACLE 4FR Sheath #[id number] sheath was inserted into the RFA^. Coronary angiography was performed using coronary diagnostic catheters. The right coronary system was accessed and visualized with a JR4 catheter. The left coronary system was accessed and visualized with a JL4 catheter. The left ventricle was accessed and visualized with a PIGTAIL catheter. Left ventricular/Aortic Valve gradient assessed via catheter pullback. Hemostasis was obtained with manual pressure following sheath removal without any complications. The patient tolerated the procedure well and there were no [facility] [address] [place] [address] INVASIVE PROCEDURE REPORT Name: INDIANA FLORES Jackie Room #: 200-I [facility] IN [facility]#: [id number] Admission: 12/03/20 Attend Phys: Abe Fisher, Discharge: Date of : 43 Report #: [id number] complications associated with the procedure. There was no hematoma. Intraoperative Conscious Sedation Sedation start time: 1212 Case end Time: 1243 Fentanyl mcg Versed mg Fluoro Time: 4.40 minutes Dose: DAP 7266.80 cGycm2 827 mGy Contrast Type and Amount: Visipaque 100 ml Coronary Angiography The patient's coronary anatomy is right dominant. Diagnostic Cath Left Main There is a severe occlusion of the distal segment. LAD There is a patent RITCHIE graft with an end to side anastomosis to the mid LAD. Diagonal 1 This is a small caliber vessel, filled via left main artery. Diagonal 2 Appears to be filled from the RITCHIE graft. Circumflex This vessel is occluded in the proximal segment. OM1 There is a patent SVG to an OM vessel. Right Coronary The RCA is a dominant vessel with multiple stents in the RCA and RPL branch. There is a severe, restenotic lesion in the mid segment of the RCA. R PDA The PDA has a high takeoff from the RCA, appears to be patent with no obvious obstruction. RPLV The stents in the proximal segment has mild diffuse restenosis. Left Ventriculography Left Ventriculography was not performed. Ejection Fraction was 50% based off patient's Echocardiogram. An LVEDP was measured and there is no gradient across the outflow tract. Hemodynamics The aortic pressure is 172/83 mmHg with a mean of 127 mmHg. The left ventricular pressure is 177/2 mmHg with a mean of mmHg. The left ventricular end diastolic pressure is 20 mmHg. Conclusion 1. There is a severe, restenotic lesion in the mid segment of the [address] [address] INVASIVE PROCEDURE REPORT Name: INDIANA FLORES Room #: 200-I [facility] IN [facility]#: [id number] Admission: 12/03/20 Attend Phys: Abe Fisher, Discharge: Date of : 43 Report #: [id number] RCA. Recommend laser atherectomy. 2. There is a patent RITCHIE graft to the LAD, also appears to be filling the second diagonal artery. 3. There is a patent SVG to an OM vessel. 4. Recommend dual antiplatelet therapy and aggressive risk factor management. <ELECTRONICALLY SIGNED> By: Giovanni Whitfield MD 12/05/20 1442 144 144 Giovanni Whitfield MD /INF
--- NOTE | 2020-12-05 15:39 | NUR ---
ASSESSMENT CHARTED. PT ALERT AND ORIENTED. VSS. HAD CARDIAC CATH THIS AM WITH NO INTERVENTION. RIGHT GROIN INCISION C/D/I. NO HEMATOMA NOTED. CARDIAC CATH POST INSTRUCTIONS GIVEN TO PT. PT VERBERLISED UNDERSTANDING. SR ON TELE. NPO AFTER MIDNIGHT FOR POSSIBLE CARDIAC CATH IN AM.
[2020-12-06] VITALS (14 sets, daily range): BP systolic 132–159; BP diastolic 62–80
[2020-12-06 04:59] LABS: CALCIUM 8.8 mg/dL (8.5-10.1); CREATININE 1.1 mg/dL (0.7-1.3); POTASSIUM 3.8 mmol/L (3.5-5.1)
--- NOTE | 2020-12-06 05:08 | NUR ---
ASSUME CARE 190. PT/VITALS STABLE. NOTED ONE EPISODE ON ANGINA PAIN WITH EXERTION THAT SUBSIDED WITH REST. NO DISTRESS NOTED THROUGH THE NIGHT. SR/ST ON MONITOR. NPO SINCE MIDNIGHT. ASSESSMENT CHARTED. PLAN IS POSSIBLE HEART CATHERIZATION TODAY. WILL CONTINUE TO MONITOR AND FOLLOW WITH POC
[2020-12-06 05:23] LABS: HEMATOCRIT 33.2 % (42.0-52.0); HEMOGLOBIN 11.1 gm/dL (14.0-18.0); MCH 30.3 pg (26.0-34.0); MCHC 33.5 g/dL (28.0-37.0); MCV 90.5 fL (80.0-100.0); RBC 3.67 mil/uL (4.50-6.00); WBC 5.7 thou/uL (4.0-11.0)
--- NOTE | 2020-12-06 11:23 | CATHLAB ---
[facility] [place] [address] INVASIVE PROCEDURE REPORT Name: INDIANA FLORES Room #: 200-I ADM IN ..#: [id number] Admission: 12/03/20 Attend Phys: Abe Fisher MD Discharge: Date of : 43 Report #: [id number] THIS REPORT FOR: cc: GERSON CABRERA MD Physician not on staff Giovanni Whitfield MD ~ APPROVED REPORT Study performed: 12/06/2020 07:55:46 Patient Details Patient Status: In-Patient Room #: 200 The patient is a 74 year-old male Event Personnel Giovanni Whitfield Toaster Element Repairer, Julissa Chavis RTR Monitor, Edith Caldwell RTR, INTELLIGENCE MANAGER Scrub, Asya Patel RN RN, Timothy Schulz RN supply person Performed Art Access - R femoral artery* Atherectomy w/wo Plasty Sgl RCA 1648824 ATHSINGLE CARLY Place w/wo Plasty Single RCA 043072 08461 Initial Mod Sed Same Phys/QHP Gr5y 820426 78310 Mod Sed Same Phys/QHP Ea 972912 Hemostasis w/ Mynx Indication Non-STEMI , Dyspnea, Chest pain, Please see the cardiac catheterization report from 12/05/2020 for full details of the coronary anatomy. The culprit vessel is a severe restenotic lesion in the mid RCA. He presents today for planned PCI involving laser atherectomy. Risk Factors Hypercholesterolemia, Coronary Artery DiseaseHypertension, Diabetes Previous Procedures/Diagnoses Previous CABGPrevious PCI, Previous [place] Procedure Narrative The Left Groin^ was infiltrated with 1% Lidocaine subcutaneous anesthesia. A PINNACLE 6FR Sheath #250137 sheath was inserted into the LFA^. Coronary angiography was performed using coronary diagnostic catheters. Pre-demployment femoral angiogram was performed . Closure device was deployed with a Fr MYNXGRIP 6/7F #[id number]. The [facility] [place] [address] INVASIVE PROCEDURE REPORT Name: INDIANA FLORES Room #: 200-I [facility] IN [facility]#: [id number] Admission: 12/03/20 Attend Phys: Abe Fisher, Discharge: Date of : 43 Report #: [id number] patient tolerated the procedure well and there were no complications associated with the procedure. There was no hematoma. Intraoperative Conscious Sedation Sedation start time: 8:03 Case end Time: 9:04 Fentanyl 200 mcg Versed 2 mg Fluoro Time: 14.44 minutes Dose: DAP 97309.20 cGycm2 1607 mGy Contrast Type and Amount: Omnipaque 155 ml Coronary Angiography The patient's coronary anatomy is right dominant. Diagnostic Cath Right Coronary There is a severe, 95% restenotic lesion in the mid RCA stent. Hemodynamics The aortic pressure is 167/81 mmHg with a mean of 116 mmHg. PCI Technique Lesion Percutaneous coronary intervention was performed on the mid right coronary artery. The lesion stenosis prior to intervention was 95% with THELMA 3 flow. A LAUNCHER 6FR AL75 #314881 Guide Catheter was used to engage the ostium. A Luge Wire .014 x 182CM #169916 Interventional Guidewire was used to cross the lesion. BALLOON DILATION A Balloon catheter ANGIOSCULPT RX 3.0MM X 10MM SCORING BALLOON #[id number] was inserted and inflated up to 18.00atm for 33seconds. Additional Inflation: 16.00atm for 18seconds. Additional Inflation: 18.00atm for 32seconds. STENT DEPLOYMENT A drug-eluting stent XIENCE ED RX 3.25 X 12 #[id number] was inserted and inflated up to 18.00atm for 18seconds. POST STENT DEPLOYMENT BALLOON DILATION A Balloon catheter TREK NC RX 3.25 X 12 #[id number] was inserted and inflated up to 18.00atm for 16seconds. Additional Inflation: 18.00atm for 16seconds. Additional Inflation: 18.00atm for 13seconds. Final angiography reveals 5 % stenosis with THELMA 3 flow. [facility] [address] [place] [address] INVASIVE PROCEDURE REPORT Name: INDIANA FLORES Room #: 200-I [facility] IN [facility].#: [id number] Admission: 12/03/20 Attend Phys: Abe Fisher, Discharge: Date of : 43 Report #: [id number] COMMENTS First laser atherectomy was performed using a [employer] 0.9 ELCA @ 80 x 80 with 4 passes across the lesion. This was followed by a Cutting Balloon using a 3 mm angiosculpt scoring balloon, up to 18 мария. Conclusion 1. PCI performed on the severe restenosis in the mid RCA stent, using Laser atherectomy followed by Cutting Balloon dilatation using a 3.0 mm angiosculpt scoring balloon. 2. Successful placement of a drug-eluting stent into the mid RCA lesion site. 3. Recommend dual antiplatelet therapy and aggressive risk factor management. <ELECTRONICALLY SIGNED> By: Giovanni Whitfield MD 12/06/201121 21 21 Giovanni Whitfield MD /INF
--- NOTE | 2020-12-06 13:08 | EKG ---
[place] [address] [facility] [place] [address] ELECTROCARDIOGRAM REPORT Name: INDIANA FLORES Room #: 200-I ADM IN M.R.#: [id number] Admission: 12/03/20 Attend Phys: Abe Fisher MD Discharge: Date of : 43 Report #: [id number] [facility] Test Date: 2020-12-06 Test Time: 10:27:34 Pat Name: INDIANA FLORES Department: Room: 200 I Gender: M Pattern Storage Clerk: URIAH : 1945 Requested By: Giovanni Whitfield Order Number: [id number] MD: Parrish Edge Measurements Intervals [place] Rate: 81 P: -47 MT: 184 QRS: 63 QRSD: 112 T: 18 QT: 396 QTc: 460 Interpretive Statements Sinus or ectopic atrial rhythm Borderline intraventricular conduction delay Low voltage, precordial leads Abnormal R-wave progression, late transition Baseline wander in lead(s) V3 Compared to ECG 12/03/2020 19:08:56 Ectopic atrial rhythm now present Low QRS voltage now present Sinus rhythm no longer present Electronically Signed On 12-06-2020 13:07:53 CDT by Parrish Edge [email or web address] <ELECTRONICALLY SIGNED> By: Parrish Edge MD, FACC 12/06/20 1307 1027 1027 Parrish Edge MD, FAC /EPI
--- NOTE | 2020-12-06 17:17 | NUR ---
ASSUMED CARE OF PT AT SHIFT CHANGE. ASSESSMENTS CHARTED. MEDS GIVEN PER NOV. PT A&OX4, NO C/O PAIN. GROIN SITES DCI, NO HEMATOMA OR BRUISING. PLAN FOR DC TOMORROW. WILL CONTINUE TO MONITOR FOR CHANGES AND FOLLOW POC.
[2020-12-07 03:27] VITALS: BP 157/83
[2020-12-07 05:44] LABS: HEMATOCRIT 33.5 % (42.0-52.0); HEMOGLOBIN 11.4 gm/dL (14.0-18.0); MCH 30.6 pg (26.0-34.0); MCHC 33.9 g/dL (28.0-37.0); MCV 90.4 fL (80.0-100.0); RBC 3.7 mil/uL (4.50-6.00); RDW 13.9 % (10.5-14.5); WBC 5.9 thou/uL (4.0-11.0)
[2020-12-07 05:49] LABS: ALBUMIN 2.9 g/dL (3.4-5.0); CALCIUM 8.9 mg/dL (8.5-10.1); CREATININE 1.1 mg/dL (0.7-1.3); POTASSIUM 3.5 mmol/L (3.5-5.1); TOTAL BILIRUBIN 0.7 mg/dL (0.2-1.0); TOTAL PROTEIN 6.2 g/dL (6.4-8.2)
[2020-12-07 07:22] VITALS: BP 140/73
[2020-12-07 11:37] VITALS: BP 140/93
--- NOTE | 2020-12-07 13:14 | NUR ---
PATIENT DISCHARGED TO HOME WITH VIA W/C. DISCHARGE INSTRUCTIONS REVIEWED WITH THE PATIENT WHO VERBALIZED UNDERSTANDING.
--- NOTE | 2020-12-07 16:22 | EKG ---
[place] [address] [facility] [place] [address] ELECTROCARDIOGRAM REPORT Name: INDIANA FLORES Room #: 200-I [facility] IN [facility].#: [id number] Admission: 12/03/20 Attend Phys: Abe Fisher MD Discharge: 12/07/20 Date of : 43 Report #: [id number] [facility] Test Date: 2020-12-07 Test Time: 07:13:38 Pat Name: INDIANA FLORES Department: Room: 200 I Gender: M Pattern Duplicator: URIAH : 1945 Requested By: Giovanni Whitfield Order Number: [id number] MD: Sandeep Jon Measurements Intervals [place] Rate: 77 P: -17 VT: 202 QRS: 65 QRSD: 119 T: 25 QT: 400 QTc: 453 Interpretive Statements Sinus rhythm Nonspecific intraventricular conduction delay Probable anteroseptal infarct, old Compared to ECG 12/06/2020 10:27:34 Septal Q waves are now present Electronically Signed On 12-07-2020 16:22:18 CDT by Sandeep Jon [email or web address] <ELECTRONICALLY SIGNED> By: Sandeep Jon MD, [facility] 12/07/20 1622 2 2 Sandeep Jon MD, [facility] /EPI
== END 2020-12-07 13:14 | disposition home or self-care (01) | DRG 246 ==
LOC: ER 19:06 → 2N 20:18 → EROBS 20:18 → 2N 20:44
PROVIDERS: Emergency Medicine; Internal Medicine Cardiovascular Disease; Nurse Practitioner; Nurse Practitioner Acute Care; ADMIT Internal Medicine; ATTEND Internal Medicine
DX: T82.855A Stenosis of coronary artery stent, initial encounter (principal); I21.4 Non-ST elevation (NSTEMI) myocardial infarction; N17.9 Acute kidney failure, unspecified; I10 Essential (primary) hypertension; I25.118 Atherosclerotic heart disease of native coronary artery with other forms of angina pectoris; E78.5 Hyperlipidemia, unspecified; Y83.8 Other surgical procedures as the cause of abnormal reaction of the patient, or of later complication, without mention of misadventure at the time of the procedure; E11.9 Type 2 diabetes mellitus without complications; E78.00 Pure hypercholesterolemia, unspecified; M06.9 Rheumatoid arthritis, unspecified; K21.9 Gastro-esophageal reflux disease without esophagitis; I87.2 Venous insufficiency (chronic) (peripheral); I65.29 Occlusion and stenosis of unspecified carotid artery; J44.9 Chronic obstructive pulmonary disease, unspecified; Z96.651 Presence of right artificial knee joint; Z95.5 Presence of coronary angioplasty implant and graft; Z95.1 Presence of aortocoronary bypass graft; Y92.89 Other specified places as the place of occurrence of the external cause; I25.2 Old myocardial infarction; Z86.718 Personal history of other venous thrombosis and embolism; Z85.46 Personal history of malignant neoplasm of prostate; Z79.4 Long term (current) use of insulin; Z79.82 Long term (current) use of aspirin; Z79.899 Other long term (current) drug therapy; Z88.0 Allergy status to penicillin; Z88.8 Allergy status to other drugs, medicaments and biological substances; Z87.891 Personal history of nicotine dependence
CPT/HCPCS: 10081

== ENCOUNTER → 2021-04-10 | Outpatient (CLI) | payer OTHER ==
[~2021-04-10] MED LIST changes: +ALPRAZOLAM 0.0.25 M1; +FAMOTIDINE 20 M20 MG PO; +NEURONTIN 300M300 M2 PO; +NEURONTIN300 MG PO
== END ==
LOC: SJCVC 10:57
PROVIDERS: ATTEND Internal Medicine Cardiovascular Disease
DX: R94.31 Abnormal electrocardiogram [ECG] [EKG] (principal); I45.10 Unspecified right bundle-branch block; I25.10 Atherosclerotic heart disease of native coronary artery without angina pectoris; I10 Essential (primary) hypertension; E78.00 Pure hypercholesterolemia, unspecified; I87.2 Venous insufficiency (chronic) (peripheral); E11.22 Type 2 diabetes mellitus with diabetic chronic kidney disease; I12.9 Hypertensive chronic kidney disease with stage 1 through stage 4 chronic kidney disease, or unspecified chronic kidney disease; N18.30 Chronic kidney disease, stage 3 unspecified; I77.9 Disorder of arteries and arterioles, unspecified; Z79.4 Long term (current) use of insulin; Z86.718 Personal history of other venous thrombosis and embolism; Z87.891 Personal history of nicotine dependence; Z79.82 Long term (current) use of aspirin; Z79.899 Other long term (current) drug therapy; Z88.2 Allergy status to sulfonamides; Z88.1 Allergy status to other antibiotic agents

== ENCOUNTER → 2021-08-29 | Outpatient (CLI) | payer OTHER | LOC: SJCVC 10:47 | PROVIDERS: ATTEND Internal Medicine Cardiovascular Disease | DX: I45.19 Other right bundle-branch block (principal); R94.31 Abnormal electrocardiogram [ECG] [EKG]; I25.10 Atherosclerotic heart disease of native coronary artery without angina pectoris; I13.0 Hypertensive heart and chronic kidney disease with heart failure and stage 1 through stage 4 chronic kidney disease, or unspecified chronic kidney disease; I50.9 Heart failure, unspecified; E11.22 Type 2 diabetes mellitus with diabetic chronic kidney disease; N18.30 Chronic kidney disease, stage 3 unspecified; E78.00 Pure hypercholesterolemia, unspecified; I77.9 Disorder of arteries and arterioles, unspecified; I87.2 Venous insufficiency (chronic) (peripheral); J44.9 Chronic obstructive pulmonary disease, unspecified; F17.210 Nicotine dependence, cigarettes, uncomplicated; Z79.4 Long term (current) use of insulin; Z86.718 Personal history of other venous thrombosis and embolism; Z82.49 Family history of ischemic heart disease and other diseases of the circulatory system; Z88.8 Allergy status to other drugs, medicaments and biological substances; Z88.1 Allergy status to other antibiotic agents; Z79.82 Long term (current) use of aspirin; Z79.899 Other long term (current) drug therapy ==